=== PATIENT | male | born 1945 | race Caucasian/White ===

== ENCOUNTER → 2023-07-22 | Outpatient (CLI) | payer MEDICARE, OTHER ==
[~2023-07-22] MED LIST: PROHANCE 279.3MG/ML 15ML VIAL ONE; PROHANCE 279.3MG/ML 5ML VIAL ONE; VITA-121 PO
== END ==
LOC: M PLAIMG 07:25
PROVIDERS: ATTEND Urology
DX: R97.20 Elevated prostate specific antigen [PSA] (principal)
CPT/HCPCS: 72197; A9576